=== PATIENT | male | born 1935 | race Caucasian/White ===

== ENCOUNTER 2016-05-09 17:12 | Emergency (ER) | payer MEDICARE, BC ==
[~2016-05-09] VITALS: Ht 175.3 cm; Wt 67.3 kg
[~2016-05-09 17:12] MED LIST: ACET-785 PO; ALBU2.5V7 AEROSOL; ASPI-611 PO; BISA10SU61 RECTALLY; DIVA125T2 PO; DOXY100C2 PO; ERGO500044; LORA2VIA34 IM; MEDR5TAB PO; PARO30TA60 PO; POLY17PO3 PO; TRAZ-170 PO; [UNRECOGNIZED DRUG - CODE] PO
[2016-05-09 17:13] VITALS: Ht 175.3 cm; Wt 67.3 kg
--- OUTSIDE RECORDS SUMMARY | 2016-05-09 17:16 | XMS REPORT | Continuity of Care Document ---
Author Author [facility] Organization [facility] Address Unknown Phone Unavailable Support Name Relationship Address Phone Kavitha CAMARA Caregiver [address] [facility] [address] [place] [address] TRICE DOWNING MD Caregiver [address] [place] [address] [place] [phone] BLAIRE PRICE Next Of Kin [address] [place] [address] Insurance Providers Payer Name Policy Number Subscriber Name Relationship Medicare [id number] Carito Price 16 Self Blue [employer] Select Plan 65 [id number] Carito Price 16 Self Advance Directives Directive Response Recorded Date/Time Advanced Directives Type DNR Documentation DPOA for Healthcare 09/15/13 7: 20am Problems Medical Problems Problem Onset Date Status Laceration of right eyebrow Unknown Active Laceration of right eyebrow Unknown Active Laceration of nose without complication Unknown Active Fall on same level from slipping Unknown Active Laceration of nose without complication Unknown Active Maxillary fracture Unknown Active Orbital fracture Unknown Active Nasal fracture Unknown Active Medications Medication Dose Route Sig Days/Qty Instructions Order Date Discontinued Date Status Furosemide 20 Mg PO daily 05/26/13 Active Trazodone Hcl 50 Mg PO BEDTIME 05/26/13 Active Calcium Carbonate 500 Mg PO TWICE A DAY 05/26/13 Active Medroxyprogesterone Acet 5 Mg PO BEDTIME 05/26/13 Active Acetaminophen 325 Mg PO TWICE A DAY 05/26/13 Active Albuterol Sulfate Mg IH NEEDED 05/26/13 Active Spironolactone 25 Mg PO DAILY 05/26/13 Active Losartan Potassium 100 Mg PO BEDTIME 05/26/13 Active Metoprolol Tartrate 12.5 Mg PO TWICE DAILY WITH MEALS 05/26/13 Active Aspirin 81 Mg PO DAILY 05/26/13 Active Magnesium Hydroxide 30 Ml PO DAILY 05/26/13 Active Sennosides/Docusate Sodium 1 Tab PO PRN DAILY 05/26/13 Active Acetaminophen 650 Mg PO NEEDED 05/26/13 Active Guaifenesin 200 Mg PO NEEDED 05/26/13 Active Al Hydroxide/Mg Hydroxide 15 Ml PO NEEDED 05/26/13 Active Multivitamin 1 Each PO DAILY 05/26/13 Active Polyethylene Glycol 3350 17 Gm PO DAILY 05/26/13 Active Fluticasone Propionate 1 [place] EA NOSTRIL DAILY 05/26/13 Active Social History Social History Problem Response Recorded Date/Time Smoking Status Never smoker 09/15/2013 7:38am Hospital Discharge Instructions No hospital discharge instructions. Plan of Care No plan of care. Functional Status Query Response Date Recorded Physical Hygiene Self September 15, 2013 7:38am Disabilities Hearing Visual September 15, 2013 7:38am Devices Used Glasses September 15, 2013 7:38am Dressing Self September 15, 2013 7:38am Ambulation Self September 15, 2013 7:38am Diet Self September 15, 2013 7:38am Mental Status Alert September 15, 2013 8:14am Disabilities Hearing Visual September 15, 2013 7:38am Devices Used Glasses September 15, 2013 7:38am Physical Hygiene Self September 15, 2013 7:38am Dressing Self September 15, 2013 7:38am Ambulation Self September 15, 2013 7:38am Diet Self September 15, 2013 7:38am Allergies, Adverse Reactions, Alerts Allergen Type Severity Reaction Status Last Updated No Known Allergies Active 09/15/13 Immunizations Name Given Type Hx Tetanus, Diptheria, Pertussis Yes Historical Hx Tetanus Diptheria UNKNOWN Historical Hx Tetanus, Diptheria, Pertussis Yes Historical Vital Signs Acute Vital Signs Vital Response Date/Time Temperature (Fahrenheit) 96.9 deg F (96.8 - 99.1) Temperature (Calculated Celsius) 36.13730 degrees C (36.0 - 37.3) Pulse Rate (adult) 82 bpm (60 - 100) Respiratory Rate 18 breaths/min (10 - 20) O2 Sat by Pulse Oximetry 95 % (90 - 100) Blood Pressure 174/90 mm Hg Height 5 ft 3 in Weight 171 lb Body Mass Index 30.0 kg/m^2 Results Name: CARITO PRICE Unit #: [id number] : 1935 Sex: M Loc / Svc: ED DOS: 09/15/13 Signed Report #: [id number] DIAGNOSTIC IMAGING REPORT TYPE OF EXAM: CT HEAD W/O CONTRAST Dictated By: CONOR GO MD INDICATION: ITS.REASON: fall, bilateral nares bleeding, anticoagulated COMPARISON: none. CT HEAD W/O CONTRAST: Transverse and coronal imaging. Evidence of nondisplaced nasal bone fracture. Evidence of a fracture of the left inferior orbital rim. Evidence of fractures of the lateral sin of both maxillary sinuses. Probable fracture of the pterygoids on the left. Zygomatic arches appear to be intact. Evidence of fluid in the maxillary sinuses that is consistent with hemorrhage. Brain scanning shows evidence of an old left frontal craniotomy. 3-4 cm areas of decreased density in the frontal and temporal lobes is consistent with encephalomalacia. Moderate ventriculomegaly is probably from brain atrophy. No evidence of acute infarct, mass, acute hemorrhage. IMPRESSION: Facial bone fractures. Craniotomy. Bilateral frontal and temporal encephalomalacia. CT the facial bones could be ordered. . Procedures No known history of procedures. Encounters Encounter Location Date/Time Departed Emergency Room [facility] 09/15/13 7:17am Recent Diagnosis
[2016-05-09] MEDS ORDERED: CHOL100018 PO (17:42)
[2016-05-09] MEDS ORDERED: PARO10TA72 PO (17:46)
[2016-05-09] MEDS ORDERED: METO-492 PO (17:46)
[2016-05-09] MEDS ORDERED: NEOM28OI18 TOP (17:47)
[2016-05-09] MEDS ORDERED: SENN-156 PO (17:50)
[2016-05-09] MEDS ORDERED: BISA10SU61 RECTALLY (17:50)
--- NOTE | 2016-05-09 18:37 | NUR ---
TO CT PER CART.
--- NOTE | 2016-05-09 18:47 | NUR ---
BACK FROM CT
--- NOTE | 2016-05-09 19:24 | ERPDOC ---
Departure Disposition Decision Date: May 09, 2016 Disposition Decision Time: 19:26 Disposition: 01 DISCHARGED HOME, SELF-CARE Impression Impression Impression: Primary Impression: Fall Additional Impression: HTN (hypertension) Severity: Moderate Condition: Improved Seen By: Physician only Referrals: Kavitha CAMARA (Family) Patient Instructions: Fall Prevention (ED) Problems/Meds/Labs Reviewed?: Yes Medications reviewed and manag: Yes Additional Instructions: Please see your primary care provider Follow up care ordered?: Yes HPI - Fall/Injury General Chief Complaint: Fall Stated Complaint: FALL Time Seen by Provider: 17:20 HPI - Fall/Injury Initial Comments 81-year-old gentleman presents to ED status post falling forward from his wheelchair. Patient is extremely hard of hearing. He cannot hear words which are yelled at top volume near his ear. He does not seem to be able to read lips , therefore communication with him is very limited. He denies any pain., By history he did fall forward out of his wheelchair striking the left side of his head, with no loss of consciousness. But we are unable to verify the story. Allergies: Coded Allergies: No Known Allergies (Unverified , 05/09/16) Past History Unable to Obtain PMH Due to: clinical condition Past Medical History Metabolic: hypertension ENMT: allergies, other Cardiac: CAD GI: GERD Male: BPH, renal insufficiency Neurological: CVA, TIA, other Musculoskeletal: osteoarthritis Psychological: dementia, depression Surgical History General: other Reproductive/: TURP Joint: other Vaccines Hx Influenza Vaccination: Yes (received on 12/16/13) Hx Pneumococcal Vaccination: Yes (has received since turning 63 years old per spouse) Hx Tetanus, Diptheria, Pertuss: Yes Review of Systems Unable to Obtain ROS Due to: clinical condition Physical Exam General General Nourishment: no acute distress, adult, thin General Body Habitus: disheveled Vitals and Pain First Documented Vital Signs Date Time Temp Pulse Resp B/P Pulse Ox O2 Delivery O2 Flow Rate FiO2 05/09/16 17:13 97.3 54 16 185/79 98 Room Air Weight: Kilograms: 67.300 Height (feet): 5 Height (inches): 9.00 Triage Pain Scale: Normal Exams: Chest/Resp: Clear all martin, with good airflow, and symmetry bilaterally CV: Regular rate and rhythm, without murmur or gallop, Pulses 2+ all extremities, capillary refill, <2 seconds all ext., no pedal edema noted ENMT (brief) Comments Bruising above left eye, no bleeding or open skin noted. Patient appears to have full range of motion of eyes. Pupils are both equal and reactive to light thomas appears to have no tenderness below the eye, does not wince when palpated above the eye and the bruised area either. Differential Diagnoses Considering: Other (abrasion, contusion, fracture, subdural hematoma) Progress Results/Orders Orders Procedure Category Date Status Time Ct Head W/O Contrast CT 05/09/16 Taken 18:17 Hydralazine PHA 05/09/16 Verified (Apresoline) 19:30 Progress Progress Exam was performed, ears were examined is well known abdomen is noted except for some slight ecchymosis above the left eye. CT brain and head was ordered, no abnormalities noted on CT. Patient be discharged back to assisted living. And will plan to follow up if he returns. Chart was being closed out on patient's discharge when final blood pressures were checked and patient's blood pressure was 217/119. He will be given 10 mg of hydralazine IV, recheck blood pressure as long as blood pressure is below 180 systolic, we'll plan on discharging her. BABATUNDE FINCH MD May 09, 2016 19:24
--- NOTE | 2016-05-09 20:02 | NUR ---
REPORT CALLED TO NURSE AT [facility] IN [place]. AMBULANCE IS TO BE PAGED TO COME AND TRANSFER PATIENT TO SENIOR LIVING.
--- NOTE | 2016-05-09 20:39 | NUR ---
FAMILY DAUGHTER, ROSS, OF PATIENT CALLED AND THIS RN UPDATED HER ON STATUS OF PATIENT AND THAT HE WAS GOING HOME.
[2016-05-09 20:45] VITALS: BP 182/92; PULSE 59; RESP 16; TEMP 97.3; O2SAT 97
--- NOTE | 2016-05-09 20:45 | NUR ---
DISMISSAL [facility] HERE TO TAKE PATIENT TO GROUP HOME.
--- NOTE | 2016-05-10 08:29 | DI ---
Indication: ITS.REASON: fall with head trauma, history of old CVA PROCEDURE: CT HEAD W/O CONTRAST: Encounter: Initial Comparison: September 15, 2013 Technique: Axial CT images through the head were performed without contrast. Iterative Reconstruction dose reducing technique was utilized. FINDINGS: Chronic bilateral frontal lobe atrophy and encephalomalacia. The ventricles are dilated but unchanged. Old bilateral basal ganglia lacunar infarcts. There is no evidence of acute intracranial hemorrhage, midline displacement, or mass effect. There are scattered areas of low attenuation in the white matter which most likely represent changes of chronic microvascular ischemia. The CT attenuation of the brain parenchyma is otherwise normal within the cerebellum, brain stem, and cerebral hemispheres. The tympanic cavities and mastoid air cells are free of appreciable disease. There are no definite fractures of the skull base, calvarium, or visualized portion of the midface. Old left frontal craniotomy. IMPRESSION: No CT evidence of acute traumatic intracranial injury. There is a preliminary report by [facility]. .
== END 2016-05-09 20:45 | disposition home or self-care (01) ==
LOC: ED 17:12
DX: S00.83XA Contusion of other part of head, initial encounter (principal); I10 Essential (primary) hypertension; W05.0XXA Fall from non-moving wheelchair, initial encounter; Y93.89 Activity, other specified; Y92.9 Unspecified place or not applicable; Y99.8 Other external cause status
CPT/HCPCS: 70450; 96374; 99284; J0360